=== PATIENT | female | born 1945 | race Two or more races ===

== ENCOUNTER 2024-10-27 14:13 | Emergency (ER) | payer BC, MEDICAID, SELFPAY ==
[2024-10-27 14:39] VITALS: BP 185/78; PULSE 79; RESP 18; TEMP 36.7; O2SAT 97; BMI 32.9
--- NOTE | 2024-10-27 14:57 | XR_ITS ---
Examination: CT lumbar spine, without contrast. 2-D sagittal reconstructions. 2-D coronal reconstructions. 3-D reconstructions. Date and time of exam:October 27, 2024 1501 hours INDICATIONS: Sudden onset lower back pain beginning today CTDI: vol (mGy):24.4 DLP: (mGycm):711 Technique: Multiple 1.25 mm axial sections of the lumbar spine without intravenous contrast have been obtained. 2-D sagittal and coronal reconstructions have been obtained. 3-D reconstructions have been obtained. Low dose protocols were performed. One or more of the following dose reduction techniques were used; automated exposure control, adjustment of the mA and/or KV according to patient size, use of iterative reconstruction technique. Findings: Severe osteopenia Advanced degenerative disc disease L3-L4, L4-L5 No lumbar fracture Lumbar pedicles laminated transverse and posterior spinous processes are intact L5-S1 5 mm central lumbar disc bulge extending to the foraminal regions with mild right L5 ganglionic compression L4-L5 moderate overall spinal stenosis, 4 mm central lumbar disc bulge, facet arthropathy and thickening of ligamentum flavum L3-L4 3 mm central lumbar disc bulge L2-L3 no disc protrusion L1-L2 no disc protrusion IMPRESSION: Advanced degenerative disc disease L3-L4, L4-L5 L5-S1 5 mm central lumbar disc bulge extending to the foraminal regions with mild right L5 ganglionic compression L4-L5 moderate overall spinal stenosis, 4 mm central lumbar disc bulge, facet arthropathy and thickening of ligamenta flava circumferentially narrowing the thecal sac L3-L4 3 mm central lumbar disc bulge
--- NOTE | 2024-10-27 15:00 | EDNOTE_ITS ---
<Statement entered by Becca Gudino MD - 10/28/24 11:53> As co-signing physician, I was present and available for consult prn. I concur with the plan and care as documented by the midlevel provider. ED Back Injury Pain RME/HPI General Chief Complaint: Back Pain/Injury Stated Complaint: LOWER BACK PAIN X 2 DAYS Time Seen by Provider: 10/27/24 14:51 Arrival date/time: 10/27/24 14:13 RME / HPI RME / HPI Narrative: 79-year-old female presents to the emergency department with complaint of left low back pain for 2 days. Patient describes the pain as sharp and throbbing. Denies any fall or trauma. Denies fever or chills. Denies bowel or bladder dysfunction. No feeling of saddle anesthesia. Related Data Home Medications ?Medication ?Instructions ?Recorded ?Confirmed amlodipine 2.5 mg tablet 2.5 mg PO BID 11/25/2009/26 cilostazol 50 mg tablet 50 mg PO BID 11/25/20 Held on 09/26/21. Instructions: Resume on 09/29/21. diclofenac sodium 75 mg 75 mg PO BID 09/25/21 tablet,delayed release losartan 100 1 tab PO QDAY 09/25/2109/25 mg-hydrochlorothiazide 12.5 mg tablet Previous Rx's ?Medication ?Instructions ?Recorded docusate sodium 100 mg capsule 100 mg PO BID #40 caps 09/26/21 (Colace) hydrocodone 7.5 mg-acetaminophen 1 tab PO Q8H PRN pain (scale score 09/26/21 325 mg tablet 7-10) #20 tabs acetaminophen 500 mg capsule 1,000 mg (2 x 500 mg) PO TID #30 10/27/24 caps lidocaine 5 % topical patch 2 patch topical QDAY #30 e a 10/27/24 (Lidoderm) nitrofurantoin 100 mg PO BID 5 days #10 cap s 10/27/24 monohydrate/macrocrystals 100 mg capsule (Macrobid) Allergies Allergy/AdvReac Type Severity Reaction Status Date / Time No Known Allergies Allergy Verified 10/27/24 14:14 Review of Systems Review of Systems Systems Reviewed: All systems reviewed, normal except as documented Past Medical History Past Medical History NEUROLOGIC: Positive Neurological Disorders and Head Trauma (FELL FROM STAIRS 2001 ER VISIT); Negative Seizures CARDIAC: Positive Cardiac Disorders and Hypertension (TAKES MED); Negative Congestive Heart Failure, Edema, Cellulitis or Varicose Veins RESPIRATORY: Negative Chronic Obstructive Pulmonary Disease (COPD), Pneumonia, Tuberculosis or Sleep Apnea GASTROINTESTINAL: Negative Gastrointestinal Disorders or Hepatitis GENITOURINARY: Negative Genitourinary Disorders or Renal Disease REPRODUCTIVE: Positive Previous Pregnancies (X10) MUSCULOSKELETAL: Positive Musculoskeletal Disorders and Arthritis ENT: Positive Head Trauma (FELL FROM STAIRS 2001 ER VISIT) ENDOCRINE: Negative Endocrine Disorders, Diabetes Mellitus Type 1 or Diabetes Mellitus Type 2 HEMATOLOGIC: Negative Blood Disorders OTHER HISTORY: Positive Hospitalization (HOSP DUE TO COLON BACTERIA 2014); Negative Autoimmune Disease, Shingles, Falls, Blood Transfusions, Blood Transfusion Reaction, Anesthesia Reactions, Chemotherapy, Radiation Therapy, MRSA, Chicken Pox, Measles, Mumps or Cancer Family History FAMILY HISTORY: Positive Family Cardiac Disorders (BORTHER,SISTER), Family Gastrointestinal Problems (SISTER (COLON)), Family Cancer (BROTHER (PROSTATE)SISTER (COLON)) and Family Surgery (FATHER,MOTHER,BROTHER,SISTER); Negative Family Psychiatric Problems, Family Respiratory Disorders or Family Anesthesia Reaction Surgical History SURGICAL: Negative Pacemaker Social History SMOKING STATUS: Never smoker Travel History EBOLA RISK: No ED Exam Narrative Physical exam: Constitutional: no acute distress, age appropriate, non-toxic Eyes: PERRL, conjunctivae w/o pallor, EOMI HENT: normocephalic, atraumatic. Oral mucosa moist Respiratory Effort: no stridor, effort normal, no retractions Abdominal: soft; non-distended, non-tender Musculoskeletal: Left lumbar paraspinal tenderness, tenderness present at the proximal glue medius as well. No midline tenderness. No spinal deformity or step-offs Skin: warm, dry; No rash Neurology: alert, oriented X 4. Normal gait. Moves all extremities spontaneously. 5 out of 5 lower extremity strength bilaterally. Sensation intact bilateral lower extremities Psychology: cooperative, normal mood Course Quality Measures none Orders Category Date Time Status CT lumbar spine wo con Stat Exams 10/27/24 14:57 Completed CBC Stat Lab 10/27/24 15:32 Completed CMP [Comprehensive Metabolic Panel] Stat Lab 10/27/24 15:32 Completed Urinalysis Stat Lab 10/27/24 15:38 Completed Acetaminophen Tab [Tylenol ES Tab] Med 10/27/24 14:57 Discontinued 1,000 mg PO X1 ONE Ketorolac Inj [Toradol Inj] Med 10/27/24 14:57 Discontinued 15 mg IM X1 ONE Lidocaine 5% Patch [Lidoderm 5% Patch] Med 10/27/24 14:57 Discontinued 1 patch TOP X1 ONE Vital Signs Vital signs: Vital Signs Temperature 98.1 F 10/27/24 14:39 Pulse Rate 79 10/27/24 14:39 Respiratory Rate 18 10/27/24 14:39 Blood Pressure 185/78 H 10/27/24 14:39 Pulse Oximetry (%) 97 10/27/24 14:39 Oxygen Delivery Method Room Air 10/27/24 14:39 Back Pain / Injury MDM Narrative MDM Narrative:: Patient with history as above presented with back pain. History obtained from patient. Patient was nontoxic, stable. Ambulatory. Exam as above. Labs reviewed. Reviewed external records. Differential diagnosis considered. Overall presentation is consistent with low risk back pain. Low suspicion for cauda equina syndrome, cord compression, epidural abscess, osteomyelitis, pyelonephritis, AAA, dissection, or other serious cause of back pain. Patient was treated with pain medications with improvement in symptoms. Consideration was given for admission, but the patient was stable for outpatient management. Disposition: Discussed need to follow up diagnostics, including incidental findings. Discharged with instructions to obtain outpatient follow up of patie nt?s symptoms and findings, with strict return precautions if patient develops new or worsening symptoms. Patient data External records reviewed:: [facility] previous records Clinical information provided by:: patient Social determinants that could affect healthcare access:: none Patient has the following chronic illnesses:: Hypertension How is presenting disease/condition affected by chronic disease/condition?: uneffected by Evaluation data The following diagnostics were reviewed and interpreted by me:: lab results and radiology exam(s) Lab and/or radiology exams considered but not ordered:: None Interpretation Summary: CBC shows no leukocytosis or anemia CMP shows no electrolyte abnormalities, no RICARDO. LFTs less than 3x upper limit of normal UA with pyuria Examination: CT lumbar spine, without contrast. 2-D sagittal reconstructions. 2-D coronal reconstructions. 3-D reconstructions. Date and time of exam:October 27, 2024 1501 hours Findings: Severe osteopenia Advanced degenerative disc disease L3-L4, L4-L5 No lumbar fracture Lumbar pedicles laminated transverse and posterior spinous processes are intact L5-S1 5 mm central lumbar disc bulge extending to the foraminal regions with mild right L5 ganglionic compression L4-L5 moderate overall spinal stenosis, 4 mm central lumbar disc bulge, facet arthropathy and thickening of ligamentum flavum L3-L4 3 mm central lumbar disc bulge L2-L3 no disc protrusion L1-L2 no disc protrusion IMPRESSION: Advanced degenerative disc disease L3-L4, L4-L5 L5-S1 5 mm central lumbar disc bulge extending to the foraminal regions with mild right L5 ganglionic compression L4-L5 moderate overall spinal stenosis, 4 mm central lumbar disc bulge, facet arthropathy and thickening of ligamenta flava circumferentially narrowing the thecal sac L3-L4 3 mm central lumbar disc bulge Medications / Prescriptions Medications or Prescriptions considered but not ordered:: N/A Medication administrations:: Medication Administration History Discontinued Medications Acetaminophen (Acetaminophen 500 Mg Tablet) 1,000 mg PO X1 ONE Stop: 10/27/24 14:58 Last Admin: 10/27/24 15:12 Dose: 1,000 mg Documented By: EO Ketorolac Tromethamine (Ketorolac Inj 30 Mg/Ml Vial) 15 mg IM X1 ONE Stop: 10/27/24 14:58 Last Admin: 10/27/24 15:13 Dose: 15 mg Documented By: EO Lidocaine (Lidocaine 5% 1 Patch) 1 patch TOP X1 ONE Stop: 10/27/24 14:58 Last Admin: 10/27/24 15:19 Dose: 1 patch Documented By: EO See above Consultations Consultation(s) initiated? (list below): No Diagnosis Differential diagnosis back pain/injury: lumbar radiculopathy, sciatica, strain of lumbar region, renal colic, pyelonephritis and other (Cauda equina syndrome) Most likely diagnosis given after review of the tests above:: Degenerative disc disease, UTI Admission Indicated Admission indicated?: not indicated Admission Request Was there a request for admission?: No Disposition Plan Disposition Plan: Discharge Discharge Attestation Discharge Attestation: The patient and all family members were given an opportunity to ask questions and understood the discharge instructions. Discharge instructions specifically effects, indications for sooner follow up or return to the emergency department, and the expected course of current diagnosis. Patient condition: Stable Discharge Plan Plan Patient Disposition: HOME (Self Care) Prescriptions/Referrals Prescriptions/Med Rec: New acetaminophen 500 mg capsule 1,000 mg PO TID Qty: 30 0RF nitrofurantoin monohyd/m-cryst [Macrobid] 100 mg capsule 100 mg PO BID 5 Days Qty: 10 0RF Rx Instructions: must administer with a meal/food lidocaine [Lidoderm] 5 % adhesive patch,medicated 2 patch topical QDAY Qty: 30 0RF Rx Instructions: leave on most painful area for up to 12 hrs No Action cilostazol 50 mg Tablet 50 mg PO BID amlodipine 2.5 mg Tablet 2.5 mg PO BID diclofenac sodium 75 mg Tablet,Delayed Release (Dr/Ec) 75 mg PO BID losartan-hydrochlorothiazide 100-12.5 mg Tablet 1 tab PO QDAY hydrocodone-acetaminophen 7.5-325 mg tablet 1 tab PO Q8H MDD 4 PRN (Reason: pain (scale score 7-10)) Qty: 20 0RF docusate sodium [Colace] 100 mg capsule 100 mg PO BID Qty: 40 0RF Problem List Clinical Impression: Degenerative disc disease, UTI (urinary tract infection) Patient/Caregiver Discharge Instructions Education Materials: Urinary Tract Infections in Women Additional Instructions: Your CT showed age-related changes (arthritis and disc herniations) in your low back. Follow-up with your PCP for referral to physical therapy. You have a urinary tract infection, which we are prescribing you antibiotics for. Rest and drink plenty of fluids. Take medication as prescribed. Return to the ED for new or worsening symptoms. Print Language: [place] Stand Alone Forms: [employer] Award Info., Patient Portal Info Letter
[2024-10-27] MEDS: ACETAMINOPHEN 500 MG TABLET 1000 MG PO (15:12)
[2024-10-27] MEDS: KETOROLAC INJ 30 MG/ML VIAL 15 MG IM (15:13)
[2024-10-27] MEDS: LIDOCAINE 5% 1 PATCH TOP (15:19)
[2024-10-27 15:46] LABS: Collection Type, Urine Clean Catch
[2024-10-27 16:10] LABS: Bacteria,Urine 1+; Bilirubin,Urine Negative (Negative); Blood,Urine Trace (Negative); Clarity,Urine Turbid (Clear/Hazy); Color,Urine Yellow (Lt Yel-Yel); Glucose, Urine Negative (Negative); Ketones,Urine Negative (Negative); Leukocyte Esterase,Urine Positive (Negative); Nitrite,Urine Negative (Negative); PH,Urine 5.5 (5.0-7.0); Protein,Urine Trace (Neg - Trace); RBC,Urine 16 /hpf (0-3); Specific Gravity,Urine 1.015 (1.001-1.035); Squamous Epithelial Cell,Urine 28 /hpf (0-5); Urobilinogen,Urine Negative mg/dL (0.0-1.0); WBC,Urine 129 /hpf (0-5)
[2024-10-27 16:14] LABS: Basophils # (Auto) 0.1 Thou/mm3 (0.0-0.2); Basophils % (Auto) 1 % (0-2.5); Eosinophils # (Auto) 0.2 Thou/mm3 (0.0-0.5); Eosinophils % (Auto) 2 % (0-10); Hematocrit 39.2 % (36.0-46.0); Hemoglobin 13.7 g/dL (12.0-16.0); Immature Granulocytes % (Auto) 1 % (0-0); Immature Granulocytes Auto 0.06 Thou/mm3 (0.00-0.00); Lymphocytes # (Auto) 3.3 Thou/mm3 (1.0-4.8); Lymphocytes % (Auto) 33 % (10-50); Mean Corpuscular HGB Conc 34.9 g/dl (31.0-37.0); Mean Corpuscular Hemoglobin 30.2 pg (25.0-35.0); Mean Corpuscular Volume 86 fL (80-100); Monocytes # (Auto) 0.6 Thou/mm3 (0.0-0.8); Monocytes % (Auto) 6 % (0-12); Neutrophils # (Auto) 5.8 Thou/mm3 (1.8-7.7); Neutrophils % (Auto) 58 % (37-80); Nucleated Red Blood Cell % 0 /100 WBC (0); Platelet Count 334 Thou/mm3 (140-440); RDW Standard Deviation 41.1 fL (36.4-46.3); Red Blood Count 4.54 Miln/mm3 (4.00-5.20)
[2024-10-27 16:36] LABS: Alanine Aminotransferase 15 U/L (10-49); Albumin, Serum 4.4 gm/dL (3.4-4.8); Albumin/Globulin Ratio 1.5 (1.2-2.2); Alkaline Phosphatase 114 U/L (46-116); Anion Gap 6 (7-16); Aspartate Amino Transferase 24 U/L (0-34); BUN/Creatinine Ratio 15 Ratio (12-20); Bilirubin,Total 0.6 mg/dL (0.3-1.2); Blood Urea Nitrogen 16 mg/dL (9-23); Calcium 9.7 mg/dL (8.3-10.6); Calcium (Corrected) 9.7 mg/dL (8.5-10.1); Carbon Dioxide 25.5 mMol/L (20.0-31.0); Chloride 105 mMol/L (98-107); Creatinine (Component) 1.1 mg/dL (0.6-1.3); Estimated Creatinine Clearance 42.7 mL/min (>60); Globulin 2.9 gm/dL (2.3-3.5); Glucose 89 mg/dL (74-106); Osmolality,Calculated 272 (275-295); Potassium 4.8 mMol/L (3.4-5.1); Sodium 136 mMol/L (136-145); Total Protein 7.3 gm/dL (5.7-8.2); eGFR 51 See Note
== END 2024-10-27 17:21 | disposition home or self-care (01) ==
LOC: SERX 17:31
PROVIDERS: Physician Assistant; Emergency Provider Emergency Medicine; PCP Internal Medicine
DX: M51.360 Other intervertebral disc degeneration, lumbar region with discogenic back pain only (principal); N39.0 Urinary tract infection, site not specified; M51.370 Other intervertebral disc degeneration, lumbosacral region with discogenic back pain only; G95.29 Other cord compression; M48.061 Spinal stenosis, lumbar region without neurogenic claudication; M47.896 Other spondylosis, lumbar region
CPT/HCPCS: 36415; 72131; 80053; 81001; 85025; 96372; 99284; J1885; Z7610; A9270

== ENCOUNTER → 2024-11-03 | Outpatient (CLI) | payer MEDICARE, MEDICAID, SELFPAY ==
--- NOTE | 2024-11-03 14:11 | XR_ITS ---
Examination: PA lateral chest 2 views TECHNIQUE: Upright PA lateral chest 2 views Exam date and time: November 03, 2024 1452 hours Comparison February 28, 2024 INDICATIONS: Coughing beginning 3 months ago. FINDINGS: Mild prominence cardiac contour Increased interstitial markings throughout the lungs No lobar pneumonia Prominent osteopenia IMPRESSION: Findings suspicious for pulmonary fibrosis, consider high resolution CT chest without contrast follow-up
== END | disposition home or self-care (01) ==
DX: R05.9 Cough, unspecified (principal)
CPT/HCPCS: 71046

== ENCOUNTER → 2024-11-04 | Outpatient (CLI) | payer MEDICARE, MEDICAID, SELFPAY | END | disposition home or self-care (01) | DX: Z00.00 Encounter for general adult medical examination without abnormal findings (principal); E55.9 Vitamin D deficiency, unspecified; R80.9 Proteinuria, unspecified; Z11.4 Encounter for screening for human immunodeficiency virus [HIV]; Z11.59 Encounter for screening for other viral diseases | CPT/HCPCS: 80053; 80061; 81001; 82043; 82306; 82570; 83036; 84443; 85025; 87389; 87517; 87522 ==

== ENCOUNTER → 2024-11-25 | Outpatient (CLI) | payer MEDICARE, MEDICAID, SELFPAY ==
[2024-11-25 11:06] LABS: Glucose Estimated Average 103 mg/dL (80-131); Hemoglobin A1C 5.2 % Hgb (4.8-6.0)
[2024-11-25 11:18] LABS: Basophils # (Auto) 0.1 Thou/mm3 (0.0-0.2); Basophils % (Auto) 1 % (0-2.5); Eosinophils # (Auto) 0.3 Thou/mm3 (0.0-0.5); Eosinophils % (Auto) 3 % (0-10); Hematocrit 41.5 % (36.0-46.0); Immature Granulocytes % (Auto) 1 % (0-0); Immature Granulocytes Auto 0.04 Thou/mm3 (0.00-0.00); Lymphocytes % (Auto) 33 % (10-50); Mean Corpuscular HGB Conc 33.7 g/dl (31.0-37.0); Mean Corpuscular Hemoglobin 30.2 pg (25.0-35.0); Mean Corpuscular Volume 90 fL (80-100); Monocytes # (Auto) 0.5 Thou/mm3 (0.0-0.8); Monocytes % (Auto) 6 % (0-12); Neutrophils % (Auto) 56 % (37-80); Nucleated Red Blood Cell % 0 /100 WBC (0); Platelet Count 338 Thou/mm3 (140-440); RDW Standard Deviation 43.5 fL (36.4-46.3); Red Blood Count 4.63 Miln/mm3 (4.00-5.20); White Blood Count 8.8 Thou/mm3 (3.6-11.0)
[2024-11-25 11:39] LABS: B-Type Natriuretic Peptide 139 pg/mL (0-100)
[2024-11-25 11:42] LABS: Vitamin D 25 Hydroxy Total 26.7 ng/mL (7.3-40.2)
[2024-11-25 11:45] LABS: Alanine Aminotransferase 20 U/L (10-49); Albumin, Serum 4.5 gm/dL (3.4-4.8); Albumin/Globulin Ratio 1.6 (1.2-2.2); Alkaline Phosphatase 115 U/L (46-116); Anion Gap 9 (7-16); Aspartate Amino Transferase 21 U/L (0-34); BUN/Creatinine Ratio 19 Ratio (12-20); Bilirubin,Total 0.9 mg/dL (0.3-1.2); Blood Urea Nitrogen 21 mg/dL (9-23); Calcium 10.2 mg/dL (8.3-10.6); Calcium (Corrected) 10.2 mg/dL (8.5-10.1); Carbon Dioxide 28.7 mMol/L (20.0-31.0); Cardiac Risk Estimate 4.1 RATIO (3.7-5.6); Chloride 103 mMol/L (98-107); Cholesterol 223 mg/dL (132-200); Creatinine (Component) 1.1 mg/dL (0.6-1.3); Free T4 (Free Thyroxine) 1.36 ng/dL (0.89-1.76); Globulin 2.9 gm/dL (2.3-3.5); Glucose 93 mg/dL (74-106); HDL Cholesterol 54 mg/dL (40-60); LDL Cholesterol,Calculated 126 mg/dL (0-130); Osmolality,Calculated 284 (275-295); Potassium 4.6 mMol/L (3.4-5.1); Sodium 141 mMol/L (136-145); Thyroid Stimulating Hormone 1.74 uIU/mL (0.55-4.78); Total Protein 7.4 gm/dL (5.7-8.2); Triglycerides 214 mg/dL (30-150); eGFR 51 See Note
== END | disposition home or self-care (01) ==
LOC: COPL 10:12
PROVIDERS: PCP Internal Medicine; Referring Provider Internal Medicine; Visit Provider Internal Medicine
DX: I11.0 Hypertensive heart disease with heart failure (principal); I50.42 Chronic combined systolic (congestive) and diastolic (congestive) heart failure; E11.9 Type 2 diabetes mellitus without complications; E78.2 Mixed hyperlipidemia; E55.9 Vitamin D deficiency, unspecified; E03.9 Hypothyroidism, unspecified
CPT/HCPCS: 36415; 80053; 80061; 82306; 83036; 83880; 84439; 84443; 85025

== ENCOUNTER 2025-04-26 16:53 | Emergency (ER) | payer MEDICARE, MEDICAID, SELFPAY ==
[2025-04-26 17:04] VITALS: BP 165/74; PULSE 62; RESP 20; TEMP 36.7; O2SAT 98; BMI 36.1
--- NOTE | 2025-04-26 17:19 | XR_ITS ---
Examination: PA lateral chest 2 views TECHNIQUE: Upright PA lateral chest 2 views Date and time: April 26, 2025, 1802 hours Comparison November 03, 2024 INDICATIONS: Chest pain today. FINDINGS: Normal heart size. Scarring versus mild pneumonia in the right middle lobe, clinical correlation is advised No pulmonary edema Severe osteopenia IMPRESSION: Scarring versus mild pneumonia in the right middle lobe, clinical correlation is advised
--- NOTE | 2025-04-26 17:19 | EKG_ITS ---
[facility] Test Date: 2025-04-26 Pat Name: MARIBELL CASTELLANOS Department: Room: - Gender: Female [employer] Vice [employer]: : 1945 Requested By: Kian Rogel Order Number: [id number] Reading MD: Kian Rogel Measurements Intervals Success Rate: 63 P: 43 WV: 141 QRS: -19 QRSD: 100 T: 19 QT: 402 QTc: 412 Interpretive Statements SINUS RHYTHM VOLTAGE CRITERIA FOR LVH [MEETS CRITERIA IN ONE OF: R(aVL), S(V1), R(V5), R(V5/V6)+S(V1)] Compared to ECG 01/25/2023 09:20:28 T-wave abnormality no longer present /store/S0/[id number]/[id number].pdf
--- NOTE | 2025-04-26 17:19 | PD.EDRME ---
Rapid Medical Screening Exam RME Arrival date/time: 04/26/25 16:53 80-year-old female with a history of hypertension presents to the emergency room with a chief complaint of weakness, fatigue, chest tightness x 2 days I have greeted and performed a focused initial assessment of this patient. A comprehensive ED assessment and evaluation of the patient, analysis of all test results, and completion of the medical decision making process will be conducted by additional ED providers. Chief Complaint: Dizziness Time Seen by Provider: 04/26/25 17:14 Vital signs: Vital Signs Temperature 98.0 F 04/26/25 17:04 Pulse Rate 62 04/26/25 17:04 Respiratory Rate 20 04/26/25 17:04 Blood Pressure 165/74 H 04/26/25 17:04 Pulse Oximetry (%) 98 04/26/25 17:04 Oxygen Delivery Method Room Air 04/26/25 17:04 Vital signs reviewed by provider: Yes
[2025-04-26 17:53] LABS: Collection Type, Urine Clean Catch
[2025-04-26 17:54] LABS: Basophils # (Auto) 0.1 Thou/mm3 (0.0-0.2); Basophils % (Auto) 1 % (0-2.5); Eosinophils # (Auto) 0.4 Thou/mm3 (0.0-0.5); Eosinophils % (Auto) 4 % (0-10); Hematocrit 37.8 % (36.0-46.0); Hemoglobin 13.2 g/dL (12.0-16.0); Immature Granulocytes Auto 0.03 Thou/mm3 (0.00-0.00); Lymphocytes # (Auto) 3.9 Thou/mm3 (1.0-4.8); Lymphocytes % (Auto) 41 % (10-50); Mean Corpuscular HGB Conc 34.9 g/dl (31.0-37.0); Mean Corpuscular Hemoglobin 31.4 pg (25.0-35.0); Mean Corpuscular Volume 90 fL (80-100); Monocytes # (Auto) 0.7 Thou/mm3 (0.0-0.8); Monocytes % (Auto) 7 % (0-12); Neutrophils # (Auto) 4.5 Thou/mm3 (1.8-7.7); Neutrophils % (Auto) 47 % (37-80); Nucleated Red Blood Cell # 0.00 Thou/mm3 (0.00-0.00); Nucleated Red Blood Cell % 0 /100 WBC (0); Platelet Count 277 Thou/mm3 (140-440); RDW Standard Deviation 43.8 fL (36.4-46.3); Red Blood Count 4.21 Miln/mm3 (4.00-5.20); White Blood Count 9.5 Thou/mm3 (3.6-11.0)
[2025-04-26 17:56] LABS: Bilirubin,Urine Negative (Negative); Blood,Urine Negative (Negative); Clarity,Urine Clear (Clear/Hazy); Color,Urine Colorless (Lt Yel-Yel); Glucose, Urine Negative (Negative); Ketones,Urine Negative (Negative); Leukocyte Esterase,Urine Positive (Negative); Nitrite,Urine Negative (Negative); PH,Urine 6.0 (5.0-7.0); Protein,Urine Negative (Neg - Trace); RBC,Urine 3 /hpf (0-3); Specific Gravity,Urine 1.009 (1.001-1.035); Squamous Epithelial Cell,Urine 2 /hpf (0-5); Urobilinogen,Urine Negative mg/dL (0.0-1.0); WBC,Urine 12 /hpf (0-5)
[2025-04-26 18:10] LABS: INR 1.0 (0.9-1.3); Partial Thromboplastin Time 23.8 Seconds (22.0-36.0); Prothrombin Time 10.9 Seconds (9.0-12.2)
[2025-04-26 18:16] LABS: B-Type Natriuretic Peptide 139 pg/mL (0-100)
[2025-04-26 18:18] LABS: Alanine Aminotransferase 18 U/L (10-49); Albumin, Serum 4.2 gm/dL (3.4-4.8); Albumin/Globulin Ratio 1.6 (1.2-2.2); Alkaline Phosphatase 113 U/L (46-116); Anion Gap 7 (7-16); Aspartate Amino Transferase 25 U/L (0-34); BUN/Creatinine Ratio 17 Ratio (12-20); Bilirubin,Total 0.5 mg/dL (0.3-1.2); Blood Urea Nitrogen 25 mg/dL (9-23); Calcium 9.1 mg/dL (8.3-10.6); Calcium (Corrected) 9.1 mg/dL (8.5-10.1); Carbon Dioxide 27.1 mMol/L (20.0-31.0); Chloride 103 mMol/L (98-107); Creatinine (Component) 1.5 mg/dL (0.6-1.3); Estimated Creatinine Clearance 28.7 mL/min (>60); Globulin 2.7 gm/dL (2.3-3.5); Glucose 105 mg/dL (74-106); Magnesium 1.6 mg/dL (1.6-2.6); Osmolality,Calculated 278 (275-295); Potassium 4.6 mMol/L (3.4-5.1); Sodium 137 mMol/L (136-145); Total Protein 6.9 gm/dL (5.7-8.2); Troponin I < 0.020 ng/mL (0.0-0.045); eGFR 35 See Note
--- NOTE | 2025-04-26 20:46 | PD.EDDIZZY ---
ED Dizzyness RME/HPI General Chief Complaint: Dizziness Stated Complaint: SOB, dizzy, arms feel heavy, abd. pain/back pain Time Seen by Provider: 04/26/25 17:14 Arrival date/time: 04/26/25 16:53 RME / HPI RME / HPI Narrative: 04/26/25 16:53 80-year-old female with a history of hypertension presents to the emergency room with a chief complaint of weakness, fatigue, chest tightness x 2 days I have greeted and performed a focused initial assessment of this patient. A comprehensive ED assessment and evaluation of the patient, analysis of all test results, and completion of the medical decision making process will be conducted by additional ED providers. --------- Dr. Wick?s Main ED Evaluation: 80yo female presenting with generalized fatigue, diaphoresis, nausea, lightheadedness, and right flank pain throughout the day today. No near syncope. She does have mild transient substernal chest discomfort, but no shortness of breath, fever, or chills. PMH includes HTN; no DM, no prior CVA or [place]. PSH includes tubal litigation and cholecystectomy. Social history is unremarkable. NKDA. Related Data Home Medications ?Medication ?Instructions ?Recorded ?Confirmed amlodipine 2.5 mg tablet 2.5 mg PO BID 11/25/20 09/26/21 cilostazol 50 mg tablet 50 mg PO BID 11/25/20 09/25/21 Held on 09/26/21. Instructions: Resume on 09/29/21. diclofenac sodium 75 mg 75 mg PO BID 09/25/21 09/25/21 tablet,delayed release losartan 100 1 tab PO QDAY 09/25/21 09/25/21 mg-hydrochlorothiazide 12.5 mg tablet Previous Rx's ?Medication ?Instructions ?Recorded docusate sodium 100 mg capsule 100 mg PO BID #40 caps 09/26/21 (Colace) hydrocodone 7.5 mg-acetaminophen 1 tab PO Q8H PRN pain (scale score 09/26/21 325 mg tablet 7-10) #20 tabs acetaminophen 500 mg capsule 1,000 mg (2 x 500 mg) PO TID #30 10/27/24 caps lidocaine 5 % topical patch 2 patch topical QDAY #30 ea 10/27/24 (Lidoderm) cefuroxime axetil 250 mg tablet 250 mg PO BID 7 days #14 tabs 04/26/25 Allergies Allergy/AdvReac Type Severity Reaction Status Date / Time No Known Allergies Allergy Verified 04/26/25 17:00 Review of Systems Review of Systems Systems Reviewed: All systems reviewed, normal except as documented Past Medical History Past Medical History NEUROLOGIC: Positive Neurological Disorders and Head Trauma (FELL FROM STAIRS 2001 ER VISIT); Negative Seizures or Infante's Palsy CARDIAC: Positive Cardiac Disorders, Hypercholesterolemia (STOP MED 2017) and Hypertension (TAKES MED); Negative Congestive Heart Failure, Edema, Cellulitis or Varicose Veins RESPIRATORY: Negative Chronic Obstructive Pulmonary Disease (COPD), Pneumonia, Tuberculosis or Sleep Apnea GASTROINTESTINAL: Positive Gall Bladder Disease (FOR THIS PROC) and Gastroesophageal Reflux Disease; Negative Gastrointestinal Disorders, Hepatitis, Pancreatitis or Ulcer GENITOURINARY: Positive Kidney Stones (HOSP NO PROC); Negative Genitourinary Disorders or Renal Disease REPRODUCTIVE: Positive Previous Pregnancies (X10) MUSCULOSKELETAL: Positive Musculoskeletal Disorders and Arthritis ENT: Positive Head Trauma (FELL FROM STAIRS 2001 ER VISIT) ENDOCRINE: Negative Endocrine Disorders, Diabetes Mellitus Type 1, Diabetes Mellitus Type 2 or Hypothyroidism HEMATOLOGIC: Negative Blood Disorders OTHER HISTORY: Positive Hospitalization (HOSP DUE TO COLON BACTERIA 2014); Negative Autoimmune Disease, Shingles, Falls, Blood Transfusions, Blood Transfusion Reaction, Anesthesia Reactions, Chemotherapy, Radiation Therapy, MRSA, Chicken Pox, Measles, Mumps or Cancer Family History FAMILY HISTORY: Positive Family Cardiac Disorders (BORTHER,SISTER), Family Gastrointestinal Problems (SISTER (COLON)), Family Cancer (BROTHER (PROSTATE)SISTER (COLON)) and Family Surgery (FATHER,MOTHER,BROTHER,SISTER); Negative Family Psychiatric Problems, Family Respiratory Disorders or Family Anesthesia Reaction Surgical History SURGICAL: Positive Arthroscopy (LEFT KNEE), Lumpectomy (LEFT) and Tubal Ligation; Negative Pacemaker Social History SMOKING STATUS: Never smoker ED Exam Narrative Physical exam: GENERAL APPEARANCE: alert and oriented x 4, well-developed, well-nourished, nontoxic, complaining of right flank pain, no acute distress VITALS: All vitals were reviewed and the pulse ox is 98% on room air, which is normal according to my interpretation. HEENT: Normocephalic, atraumatic; pupils equal, round, reactive to light; EOMI; mucous membranes pink, moist; oropharynx clear NECK: Supple LUNGS: CTABL; no wheezes, no rales, no rhonchi HEART: Regular rate, regular rhythm; normal S1, S2; no murmurs ABDOMEN: non distended; normal BS; soft, no tenderness, no guarding, no rebound; no masses, no organomegaly, no hernia BACK: 2+ right CVA tenderness EXTREMITIES: atraumatic; no edema NEUROLOGIC: awake; alert and oriented x4; cranial nerves II-XII grossly intact; no focal sensory or motor deficits; normal gait observed PSYCHIATRIC: appropriate mood and affect SKIN: warm, dry, normal color; no rashes Course Quality Measures none Orders Category Date Time Status EKG (ED ONLY) *Do not use* NOW Care 04/26/25 17:[address] abdomen pelvis wo con Stat Exams 04/26/25 20:59 Completed EKG (ED Only) Stat Exams 04/26/25 17:19 Draft XR chest 2V Stat Exams 04/26/25 17:19 Completed B-Type Natriuretic Peptide Stat Lab 04/26/25 17:48 Completed CBC Stat Lab 04/26/25 17:48 Completed Comprehensive Metabolic Panel Stat Lab 04/26/25 17:48 Completed Magnesium Stat Lab 04/26/25 17:48 Completed Partial Thromboplastin Time Stat Lab 04/26/25 17:48 Completed Prothrombin Time with INR Stat Lab 04/26/25 17:48 Completed Troponin I Stat Lab 04/26/25 17:48 Completed Urinalysis Stat Lab 04/26/25 17:44 Completed HYDROcodone*/APAP 5/325 [[place] 5/325] Med 04/26/25 21:00 Discontinued 1 tab PO X1 ONE Sodium Chloride 0.9% 1000 ml [Ns] 1,000 ml Med 04/26/25 21:01 Discontinued IV 999 mls/hr cefTRIAXone/D5w 1gm IV premix [Rocephin/D5w 1gm IV Med 04/26/25 22:52 Discontinued premix] 1 gm in 50 ml IV X1 Vital Signs Vital signs: Vital Signs Temperature 98.0 F 04/26/25 17:04 Pulse Rate 62 04/26/25 17:04 Respiratory Rate 20 04/26/25 17:04 Blood Pressure 165/74 H 04/26/25 17:04 Pulse Oximetry (%) 98 04/26/25 17:04 Oxygen Delivery Method Room Air 04/26/25 17:04 Dizziness MDM Narrative MDM Narrative:: Scribe Attestation: 04/26/25 Kathie Gibson am scribing for and in the presence of Dr. Wick. 80yo female presenting with generalized fatigue, diaphoresis, nausea, lightheadedness, and right flank pain throughout the day today. No near syncope. Please see PE findings. Lab markers demonstrate normal CBC and coagulation profile. Chemistries demonstrate acute renal insufficiency with 25% reduction in eGFR. UA with evidence of infection. Patient received IV fluids and empiric antibiotics, remained neurologically intact and hemodynamically stable. Patient is stable for discharge and will be placed on outpatient antibiotics. Flank pain possibly referred secondary to UTI. Encouraged close follow-up with PMD. Precaution instructions issued. Patient data External records reviewed:: [facility] previous records (Per chart review, patient was seen here on 10/27/24 for degenerative disc disease.) Clinical information provided by:: patient Social determinants that could affect healthcare access:: none Patient has the following chronic illnesses:: HTN, HLD How is presenting disease/condition affected by chronic disease/condition?: exacerbated by Evaluation data The following diagnostics were reviewed and interpreted by me:: lab results, radiology exam(s) and EKG tracing(s) Lab and/or radiology exams considered but not ordered:: none Interpretation Summary: EKG done at 1722, NSR, rate of 63, no acute pathological ST segment changes, no ectopy, normal intervals, left axis deviation, LVH, according to my interpretation. [facility] Report Signed Patient: MARIBELL CASTELLANOS. Record#: [id number] Birthdate: 1945 Age/Sex: 80 / F Location: [facility] Attending Dr: Ordering Physician: Kian Trinidad Date of Service: 04/26/25 Procedure(s): XR chest 2V Accession Number(s): [id number] cc: Arslan Martinez MD; Kian Trinidad; Peter Proctor MD~ Examination: PA lateral chest 2 views TECHNIQUE: Upright PA lateral chest 2 views Date and time: April 26, 2025, 1802 hours Comparison November 03, 2024 INDICATIONS: Chest pain today. FINDINGS: Normal heart size. Scarring versus mild pneumonia in the right middle lobe, clinical correlation is advised No pulmonary edema Severe osteopenia IMPRESSION: Scarring versus mild pneumonia in the right middle lobe, clinical correlation is advised Dictated By: Peter Proctor MD Signed By: <Electronically signed by Peter Proctor MD in OV> 04/26/25 1808 [facility] Signed Patient: MARIBELL CASTELLANOS Record#: [id number] Birthdate: 1945 Age/Sex: 80 / F Location: [facility] Attending Dr: Ordering Physician: Darius Cerna DO Date of Service: 04/26/25 Procedure(s): CT abdomen pelvis wo con Accession Number(s): [id number] cc: Arslan Martinez MD; Darius Cerna DO; Peter Proctor MD~ Examination: CT abdomen and pelvis without contrast. Coronal 3-D reconstructions. Sagittal 2-D reconstructions. Date and time of exam:April 26, [id number] hours Comparison January 25, 2023 INDICATIONS: Right flank pain beginning today CTDI: vol (mGy): 10.4 DLP: (mGycm): 520 Technique: Axial images of the abdomen have been obtained, 3 mm slice thickness Intravenous contrast material has not been administered. Low dose protocols were performed. One or more of the following dose reduction techniques were used; automated exposure control, adjustment of the mA and/or KV according to patient size, use of iterative reconstruction technique. Findings: Or splenic lesions stable 12 mm right lobe liver cyst No biliary tract dilatation Absent gallbladder No pancreatic or adrenal mass Small parapelvic cyst No hydronephrosis or ureteral calculi Bilateral renal cortical thinning with moderate renal parenchymal scar formation Aorta normal size No pericecal inflammatory change No bowel obstruction Anteverted uterus No bladder mass or bladder calculi Advanced degenerative disc disease L3-L4, L4-L5 IMPRESSION: Moderate bilateral renal parenchymal scar formation No renal or ureteral calculi, no hydronephrosis No bladder mass or bladder calculi Dictated By: Peter Proctor MD Signed By: <Electronically signed by Peter Proctor MD in OV> 04/26/25 2231 Medications / Prescriptions Medications or Prescriptions considered but not ordered:: none Medication administrations:: Medication Administration History Discontinued Medications Hydrocodone Bitart/Acetaminophen (Hydrocodone/Apap 5/325 Tablet) 1 tab PO X1 ONE Stop: 04/26/25 21:01 Last Admin: 04/26/25 22:18 Dose: 1 tab Documented By: NYASIA Sodium Chloride (Ns) 1,000 mls @ 999 mls/hr IV .Q1H1M ONE Stop: 04/26/25 22:01 Last Infusion: 04/27/25 00:00 Dose: Infused Documented By: Admin: 04/26/25 22:27 Dose: 999 mls/hr Documented By: NYASIA Ceftriaxone Sodium/Dextrose (Rocephin/D5w 1gm Iv Premix) 1 gm in 50 mls @ 100 mls/hr IV X1 ONE Stop: 04/26/25 23:21 Last Infusion: 04/26/25 23:55 Dose: Infused Documented By: Admin: 04/26/25 23:24 Dose: 100 mls/hr Documented By: NYASIA see above Consultations Consultation(s) initiated? (list below): No Diagnosis Dizziness Differential Diagnosis: other (kidney stone, UTI, pyelonephritis, dehydration, electrolyte abnormality, RICARDO) Most likely diagnosis given after review of the tests above:: UTI, acute renal insufficiency Admission Indicated Admission indicated?: not indicated Admission Request Was there a request for admission?: No Disposition Plan Disposition Plan: Discharge Discharge Attestation Discharge Attestation: The patient and all family members were given an opportunity to ask questions and understood the discharge instructions. Discharge instructions specifically effects, indications for sooner follow up or return to the emergency department, and the expected course of current diagnosis. Patient condition: Stable Discharge Plan Plan Patient Disposition: HOME (Self Care) Discharge Disposition comment: Stable Prescriptions/Referrals Prescriptions/Med Rec: New cefuroxime axetil 250 mg tablet 250 mg PO BID 7 Days Qty: 14 0RF No Action cilostazol 50 mg Tablet 50 mg PO BID amlodipine 2.5 mg Tablet 2.5 mg PO BID diclofenac sodium 75 mg Tablet,Delayed Release (Dr/Ec) 75 mg PO BID losartan-hydrochlorothiazide 100-12.5 mg Tablet 1 tab PO QDAY hydrocodone-acetaminophen 7.5-325 mg tablet 1 tab PO Q8H MDD 4 PRN (Reason: pain (scale score 7-10)) Qty: 20 0RF docusate sodium [Colace] 100 mg capsule 100 mg PO BID Qty: 40 0RF acetaminophen 500 mg capsule 1,000 mg PO TID Qty: 30 0RF lidocaine [Lidoderm] 5 % adhesive patch,medicated 2 patch topical QDAY Qty: 30 0RF Rx Instructions: leave on most painful area for up to 12 hrs Referrals: Arslan Martinez MD [Primary Care Provider] - In 1 week Problem List Clinical Impression: Acute UTI, Acute renal insufficiency Patient/Caregiver Discharge Instructions Discharge Activity: activity as tolerated Education Materials: Urinary Tract Infections in Women, Dehydration, ED Renal Insufficiency Additional Instructions: Force fluids/maintain adequate rest/medication as directed/follow-up with primary care doctor for repeat urinalysis and serum chemistries in 1 week. Discontinue diclofenac until further notice. Print Language: Indonesian Stand Alone Forms: [employer] Award Info., Patient Portal Info Letter
--- NOTE | 2025-04-26 20:59 | XR_ITS ---
Examination: CT abdomen and pelvis without contrast. Coronal 3-D reconstructions. Sagittal 2-D reconstructions. Date and time of exam:April 26, [id number] hours Comparison January 25, 2023 INDICATIONS: Right flank pain beginning today CTDI: vol (mGy): 10.4 DLP: (mGycm): 520 Technique: Axial images of the abdomen have been obtained, 3 mm slice thickness Intravenous contrast material has not been administered. Low dose protocols were performed. One or more of the following dose reduction techniques were used; automated exposure control, adjustment of the mA and/or KV according to patient size, use of iterative reconstruction technique. Findings: Or splenic lesions stable 12 mm right lobe liver cyst No biliary tract dilatation Absent gallbladder No pancreatic or adrenal mass Small parapelvic cyst No hydronephrosis or ureteral calculi Bilateral renal cortical thinning with moderate renal parenchymal scar formation Aorta normal size No pericecal inflammatory change No bowel obstruction Anteverted uterus No bladder mass or bladder calculi Advanced degenerative disc disease L3-L4, L4-L5 IMPRESSION: Moderate bilateral renal parenchymal scar formation No renal or ureteral calculi, no hydronephrosis No bladder mass or bladder calculi
[2025-04-26] MEDS: HYDROcodone/APAP 5/325 TABLET 1 TAB PO (22:18)
[2025-04-26 22:19] VITALS: BP 180/79; O2SAT 98
[2025-04-26] MEDS: SODIUM CHLORIDE 0.9% 1000 ML 1,000 ML 999 ML IV (22:27)
[2025-04-26 23:01] VITALS: BP 158/82; PULSE 81; RESP 18; O2SAT 99
[2025-04-26] MEDS: cefTRIAXone/D5w 1gm IV premix 1 GM/50 ML BAG IV (23:24)
== END 2025-04-27 | disposition home or self-care (01) ==
PROVIDERS: Nurse Practitioner Family; Emergency Provider Emergency Medicine; PCP Internal Medicine
DX: N39.0 Urinary tract infection, site not specified (principal); N28.9 Disorder of kidney and ureter, unspecified; R07.89 Other chest pain; E78.00 Pure hypercholesterolemia, unspecified; I10 Essential (primary) hypertension; Z79.899 Other long term (current) drug therapy
CPT/HCPCS: 36415; 71046; 74176; 80053; 81001; 83735; 83880; 84484; 85025; 85610; 85730; 93005; 96365; 99284; J0696; J7030; A9270

== ENCOUNTER → 2025-05-10 | Outpatient (CLI) | payer MEDICARE, MEDICAID, SELFPAY ==
[2025-05-10 11:33] LABS: Collection Type, Urine Clean Catch
[2025-05-10 12:44] LABS: Bilirubin,Urine Negative (Negative); Blood,Urine Negative (Negative); Color,Urine Yellow (Lt Yel-Yel); Culture Indicated,Urine Not Indicated; Glucose, Urine Negative (Negative); Ketones,Urine Negative (Negative); Leukocyte Esterase,Urine Positive (Negative); Nitrite,Urine Negative (Negative); PH,Urine 5.5 (5.0-7.0); Protein,Urine Negative (Neg - Trace); RBC,Urine 1 /hpf (0-3); Specific Gravity,Urine 1.023 (1.001-1.035); Squamous Epithelial Cell,Urine 5 /hpf (0-5); Urobilinogen,Urine 3.0 mg/dL (0.0-1.0); WBC,Urine 4 /hpf (0-5)
[2025-05-10 13:10] LABS: Clarity,Urine Hazy (Clear/Hazy)
== END | disposition home or self-care (01) ==
LOC: SLDO 11:19
PROVIDERS: PCP Internal Medicine; Referring Provider Internal Medicine; Visit Provider Internal Medicine
DX: N39.0 Urinary tract infection, site not specified (principal)
CPT/HCPCS: 81001